=== PATIENT | female | born 1980 | race Caucasian/White ===

== ENCOUNTER 2019-09-05 15:07 | Emergency (ER) | payer SELFPAY ==
[~2019-09-05] VITALS: Ht 149.9 cm; Wt 50.3 kg
[2019-09-05 15:47] VITALS: Ht 149.9 cm; Wt 50.3 kg
[2019-09-05 17:19] VITALS: BP 110/71
== END 2019-09-05 17:19 | disposition home or self-care (01) ==
LOC: ED 15:07
DX: J06.9 Acute upper respiratory infection, unspecified (principal); H60.92 Unspecified otitis externa, left ear; Z88.0 Allergy status to penicillin